=== PATIENT | female | born 1985 | race Caucasian/White ===

== ENCOUNTER 2017-12-28 16:52 | Emergency (ER) | payer OTHER ==
[2017-12-28 17:16] VITALS: BP 132/76; PULSE 110; TEMP 98.3; BMI 51.7
[2017-12-28 17:17] LABS: HCG,QUALITATIVE URINE Negative
[2017-12-28 17:22] LABS: PH,URINE 5.5 (4.5-8); URINE APPEARANCE Clear; URINE BILIRUBIN Negative (NEGATIVE); URINE COLOR Yellow; URINE GLUCOSE (UA) Trace (NEGATIVE); URINE KETONE Negative (NEGATIVE); URINE LEUK ESTERASE 1+ (NEGATIVE); URINE NITRITE Negative (NEGATIVE); URINE PROTEIN Negative (NEGATIVE); URINE UROBILINOGEN 0.2 (0.2-1.0)
[2017-12-28 18:05] LABS: EPI CELLS FEW /HPF
[2017-12-28 18:06] LABS: URINE BACTERIA FEW /hpf (NEGATIVE)
--- NOTE | 2017-12-28 19:10 | PDOC ---
History of Present Illness - General Chief Complaint: Psychiatric Stated Complaint: PSYCHIATRIC Time Seen by Provider: 12/28/17 17:34 - History of Present Illness Initial Comments: 12/28/17 19:10 Attempted to see patient. Patient was not compliant and she eloped before medical evaluation could be completed. Past History - Past Medical History Allergies/Adverse Reactions: Allergies Allergy/AdvReac Type Severity Reaction Status Date / Time lamotrigine [From Lamictal] Allergy Verified 12/28/17 16:54 [place] Allergy Verified 12/28/17 16:54 clyde Allergy Verified 12/28/17 16:54 topiramate [From Topamax] Allergy Verified 12/28/17 16:54 - Suicide/Smoking/Psychosocial Hx Smoking History: Never smoked Drug/Substance Use Hx: Yes (DAILY WINE) Review of Systems - Review of Systems Able to Perform ROS?: No (Patient eloped) *Physical Exam - Vital Signs Last Vital Signs Temp Pulse Resp BP Pulse Ox 98.3 F 110 H 18 132/76 98 12/28/17 16:53 12/28/17 16:53 12/28/17 16:53 12/28/17 16:53 12/28/17 16:53 - Physical Exam General Appearance: Yes: Disheveled ED Treatment Course - ADDITIONAL ORDERS Additional order review: Laboratory Results 12/28/17 17:03 Urine Color Yellow Urine Appearance Clear Urine pH 5.5 Ur Specific [place] 1.015 Urine Protein Negative Urine Glucose (UA) Trace Urine Ketones Negative Urine Blood Trace-lysed H Urine Nitrite Negative Urine Bilirubin Negative Urine Urobilinogen 0.2 Ur Leukocyte Esterase 1+ H Urine RBC 2-5 Urine WBC 5-10 Ur Epithelial Cells Few Urine Bacteria Few Urine HCG, Qual Negative Medical Decision Making - Medical Decision Making 12/29/17 22:07 Could not evaluate patient bc she eloped. *DC/Admit/Observation/Transfer Diagnosis at time of Disposition: Left before treatment completed - Discharge Dispostion Disposition: LEFT BEFORE DIANE ALONSO - Referrals - Patient Instructions - Post Discharge Activity
== END 2017-12-28 19:12 | disposition left against medical advice (07) ==
LOC: FER 16:52
DX: F99 Mental disorder, not otherwise specified (principal)
CPT/HCPCS: 81003; 81015; 84703; 99281-25

== ENCOUNTER 2018-01-27 13:26 | Emergency (ER) | payer MEDICARE, OTHER ==
--- NOTE | 2018-01-27 13:33 | PDOC ---
History of Present Illness - General History Source: Patient Exam Limitations: No Limitations - History of Present Illness Initial Comments: 01/27/18 14:16 The patient is a 32 year old female with no significant PMH who presents to the emergency department with 3 day history of increased odor to her urine and vaginal discharge with subjective fevers at home. Patient reports her urine is slimy and is concerned that she has a sexually transmitted disease. The patient denies chills, dysuria, frequency, urgency and hematuria. Allergies: NKA Past surgical history: None reported. Social history: No reported alcohol, drug or cigarette use. <Kira Mchugh - Last Filed: 01/27/18 14:20> - History of Present Illness Initial Comments: 01/27/18 13:52 Pt presents to the ED complaining of a several day history of "slimy" urine <Alisha Ahumada - Last Filed: 01/27/18 17:04> - General Chief Complaint: Urinary Problem Stated Complaint: WANTS TO BE EVALUATED FOR STD Time Seen by Provider: 01/27/18 13:33 Past History <Kira Mchugh - Last Filed: 01/27/18 14:20> - Suicide/Smoking/Psychosocial Hx Smoking History: Never smoked Drug/Substance Use Hx: Yes (DAILY WINE) <Alisha Ahumada - Last Filed: 01/27/18 17:04> - Past Medical History Allergies/Adverse Reactions: Allergies Allergy/AdvReac Type Severity Reaction Status Date / Time lamotrigine [From Lamictal] Allergy Severe Verified 01/27/18 13:29 [place] Allergy Severe Difficulty Verified 01/27/18 13:31 Breathing clyde Allergy Severe Difficulty Verified 01/27/18 13:31 Breathing topiramate [From Topamax] Allergy Severe Verified 01/27/18 13:30 Home Medications: Ambulatory Orders Doxycycline Hyclate 200 mg PO BID #20 tablet. 01/27/18 Vit 93/Iron Fum/Folic [ Formula Tablet] 1 each PO DAILY Review of Systems - Review of Systems Able to Perform ROS?: Yes Comments:: 01/27/18 14:17 ADULT ROS GENERAL/CONSTITUTIONAL: No fever or chills. No weakness. HEAD, EYES, EARS, NOSE AND THROAT: No change in vision. No ear pain or discharge. No sore throat. CARDIOVASCULAR: No chest pain or shortness of breath. RESPIRATORY: No cough, wheezing, or hemoptysis. GASTROINTESTINAL: No nausea, vomiting, diarrhea or constipation. GENITOURINARY: No dysuria or frequency. (+) Vaginal discharge. (+) Odorous urine. MUSCULOSKELETAL: No joint or muscle swelling or pain. No neck or back pain. SKIN: No rash NEUROLOGIC: No headache, vertigo, loss of consciousness, or change in strength/ sensation. ENDOCRINE: No increased thirst. No abnormal weight change. HEMATOLOGIC/LYMPHATIC: No anemia, easy bleeding, or history of blood clots. ALLERGIC/IMMUNOLOGIC: No hives or skin allergy <Kira Mchugh - Last Filed: 01/27/18 14:20> *Physical Exam - Vital Signs Last Vital Signs Temp Pulse Resp BP Pulse Ox 97.8 F 96 H 18 128/86 98 01/27/18 13:28 01/27/18 13:28 01/27/18 13:28 01/27/18 13:28 01/27/18 13:28 - Physical Exam Comments: 01/27/18 14:17 ADULT EXAM GENERAL: Awake, alert, and fully oriented, in no acute distress HEAD: No signs of trauma EYES: PERRLA, EOMI, sclera anicteric, conjunctiva clear ENT: Auricles normal inspection, hearing grossly normal, nares patent, oropharynx clear without exudates. Moist mucosa NECK: Normal ROM, supple, no lymphadenopathy, JVD, or masses LUNGS: Breath sounds equal, clear to auscultation bilaterally. No wheezes, and no crackles HEART: Regular rate and rhythm, normal S1 and S2, no murmurs, rubs or gallops ABDOMEN: (+) Voluntary guarding, refused to have abdominal exam. EXTREMITIES: Normal range of motion, no edema. No clubbing or cyanosis. No cords, erythema, or tenderness NEUROLOGICAL: Cranial nerves II through XII grossly intact. Normal speech, normal gait SKIN: Warm, Dry, normal turgor, no rashes or lesions noted. <Kira Mchugh - Last Filed: 01/27/18 14:20> - Physical Exam Female Pelvic Exam: positive: normal external exam, cervical os closed, discharge (scant amount of yellowish discharge. Patient refused bimanual exam.) <Alisha Ahumada - Last Filed: 01/27/18 17:04> ED Treatment Course - ADDITIONAL ORDERS Additional order review: Laboratory Results 01/27/18 13:49 Urine Color Yellow Urine Appearance Clear Urine pH 5.5 Ur Specific [place] >= 1.030 Urine Protein Negative Urine Glucose (UA) Negative Urine Ketones Negative Urine Blood Negative Urine Nitrite Negative Urine Bilirubin Negative Urine Urobilinogen 0.2 Ur Leukocyte Esterase Trace H Urine RBC 0-2 Urine WBC 2-5 Ur Epithelial Cells 1+ Urine Bacteria None seen Urine HCG, Qual Negative <Kira Mchugh - Last Filed: 01/27/18 14:20> Medical Decision Making - Medical Decision Making 01/27/18 17:02 Pt presents to the ED complaining of vaginal discharge and "slimy urine". Wants to be tested for STD. Exam was not suggestive of gonorrhea or chlamydia, but given patient concern, will start treatment for cervicitis. Will discharge home with instructions to follow up with DEFENSE TRAVEL ADMINISTRATOR. Patient reported being 6 months , but has negative u preg today. <Alisha Ahumada - Last Filed: 01/27/18 17:04> *DC/Admit/Observation/Transfer - Attestations Scribe Attestion: 01/27/18 14:17 Documentation prepared by Kira Mchugh, acting as lpn medical assistant for Alisha Ahumada MD. <Kira Mchugh - Last Filed: 01/27/18 14:20> - Discharge Dispostion Decision to Admit order: No <Alisha Ahumada - Last Filed: 01/27/18 17:04> Diagnosis at time of Disposition: Cervicitis - Discharge Dispostion Disposition: HOME Condition at time of disposition: Good - Prescriptions Prescriptions: Doxycycline Hyclate 200 mg PO BID #20 tablet.dr - Patient Instructions Printed Discharge Instructions: DI for Acute Cervicitis Additional Instructions: return to the Ed for fever, nausea and vomiting, severe abdominal pain, other new or changing symptoms. Make sure that you follow up with your DEFENSE TRAVEL ADMINISTRATOR within two days.
[2018-01-27 13:39] VITALS: BP 128/86; PULSE 96; TEMP 97.8; BMI 51.7
[2018-01-27 13:59] LABS: HCG,QUALITATIVE URINE Negative
[2018-01-27 14:02] LABS: PH,URINE 5.5 (4.5-8); URINE APPEARANCE Clear; URINE BILIRUBIN Negative (NEGATIVE); URINE COLOR Yellow; URINE GLUCOSE (UA) Negative (NEGATIVE); URINE KETONE Negative (NEGATIVE); URINE LEUK ESTERASE TRACE (NEGATIVE); URINE NITRITE Negative (NEGATIVE); URINE PROTEIN Negative (NEGATIVE); URINE UROBILINOGEN 0.2 (0.2-1.0)
[2018-01-27] MEDS ORDERED: AZITHROMYCIN 1 GM PACKET PO ONE (14:12)
[2018-01-27 14:13] LABS: EPI CELLS 1+ /HPF; URINE BACTERIA NONE SEEN /hpf (NEGATIVE); URINE RBC 0-2 /hpf (0-3)
[2018-01-27] MEDS ORDERED: AZITHROMYCIN 250 MG TABLET ONE (14:17)
== END 2018-01-27 14:34 | disposition home or self-care (01) ==
LOC: FER 13:26
DX: N72 Inflammatory disease of cervix uteri (principal)
CPT/HCPCS: 36415; 81003; 81015; 84703; 87491; 87591; 96372; 99282-25

== ENCOUNTER 2018-01-27 17:00 | Emergency (ER) | payer MEDICARE ==
--- NOTE | 2018-01-27 17:08 | PDOC ---
History of Present Illness - General Stated Complaint: DEHYDRATION Time Seen by Provider: 01/27/18 17:07 History Source: Patient Exam Limitations: Other (Pt gives conflicting stories, poor historian or refuses to answer some questions.) - History of Present Illness Initial Comments: Pt is a 32 yo F, with PMH of NIDDM, who was brought by EMS today after pt experienced "dizziness" 1-2 hours before presentation and states "I feel like drugs are in my brain," and "I'm dehydrated and have a disease". Pt was unable to describe light-headedness versus vertigo. She denies fevers/chills, headache , nausea/vomiting, chest pain, syncope, palpitations, abdominal pain, urinary symptoms, diarrhea, or joint pain. The pt has been seen at [facility] ER in December (eloped before full evaluation), and was seen earlier today at [facility] ER with "slimy urine" and concern for STD infection. Pt insists that she is , stating her LMP was "about a year ago," and that she has had gonorrhea and chlamydia in the past. However she also admits that she has never had penetrative intercourse. She denies alcohol, cigarette, and drug use. 01/27/18 19:27 Past History - Travel Traveled outside of the country in the last 30 days: No Close contact w/someone who was outside of country & ill: No - Past Medical History Allergies/Adverse Reactions: Allergies Allergy/AdvReac Type Severity Reaction Status Date / Time lamotrigine [From Lamictal] Allergy Severe Verified 01/27/18 13:29 [place] Allergy Severe Difficulty Verified 01/27/18 13:31 Breathing [place] Allergy Severe Difficulty Verified 01/27/18 13:31 Breathing topiramate [From Topamax] Allergy Severe Verified 01/27/18 13:30 Home Medications: Ambulatory Orders Doxycycline Hyclate 200 mg PO BID #20 tablet. 01/27/18 Vit 93/Iron Fum/Folic [ Formula Tablet] 1 each PO DAILY COPD: No Diabetes: Yes HTN: No Hypercholesterolemia: No Psychiatric Problems: Yes (admits depression in past) - Surgical History Cholecystectomy: Yes - Suicide/Smoking/Psychosocial Hx Smoking History: Never smoked Have you smoked in the past 12 months: No Hx Alcohol Use: No Drug/Substance Use Hx: Yes (DAILY WINE) Substance Use Type: None Review of Systems - Review of Systems Able to Perform ROS?: Yes Is the patient limited Slovak proficient: Yes Constitutional: Yes: Weight Stable. No: Chills, Fever, Loss of Appetite, Weakness HEENTM: No: Recent change in vision, Nose Congestion, Difficulty Swallowing Respiratory: No: Cough, Orthopnea, Shortness of Breath, Wheezing Cardiac (ROS): Yes: Lightheadedness ("dizziness and dehydrated"). No: Chest Pain, Edema, Irregular Heart Rate, Palpitations, Syncope, Chest Tightness ABD/GI: No: Abdominal Distended, Constipated, Diarrhea, Nausea, Poor Appetite, Poor Fluid Intake, Vomiting : No: Burning (pt denies urinary symptoms on this visit), Dysuria, Frequency, Hematuria, Pain Musculoskeletal: No: Back Pain, Joint Pain Integumentary: No: Bruising Neurological: Yes: Dizziness. No: Headache, Numbness, Seizure, Weakness, Unsteady Gait, Ataxia Psychiatric: Yes: Depression (past history, took "medications for about 1 day") , Other (Denies SI/HI). No: Change in Appetite Endocrine: No: Increased Urine, Change in Weight Hematologic/Lymphatic: No: Blood Clots, Easy Bleeding All Other Systems: Reviewed and Negative *Physical Exam - Physical Exam General Appearance: Yes: Nourished, Appropriately Dressed, Obese. No: Apparent Distress, Alcohol on Breath HEENT: positive: EOMI, YESIKA (pupils dilated, PERRLA), Normal ENT Inspection, Normal Voice, Symmetrical, Pharynx Normal, Hearing Grossly Normal. negative: Scleral Icterus (R), Scleral Icterus (L), Tonsillar Exudate, Tonsillar Erythema , Nasal Congestion Neck: positive: Trachea midline, Normal Thyroid, Supple. negative: Tender, Rigid, Lymphadenopathy (R), Lymphadenopathy (L) Respiratory/Chest: positive: Lungs Clear, Normal Breath Sounds. negative: Chest Tender, Respiratory Distress, Accessory Muscle Use, Crackles, Wheezing Cardiovascular: positive: Regular Rhythm, Regular Rate, S1, S2. negative: Edema , JVD, Murmur Vascular Pulses: Carotid (R): 4+, Carotid (L): 4+ Female Pelvic Exam: negative: other (no urinary or vaginal complaints at this time, deferred) Gastrointestinal/Abdominal: positive: Protuberent, Other (pt refused as "she's ") Rectal Exam: positive: deferred Lymphatic: negative: Adenopathy, Tenderness Musculoskeletal: positive: Normal Inspection. negative: CVA Tenderness Extremity: positive: Normal Capillary Refill, Normal Inspection, Normal Range of Motion, Pelvis Stable. negative: Tender Integumentary: positive: Normal Color, Dry, Warm. 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 negative: Normal Mood/Affect (odd responses to questions. kept repeating "what are we doing right now?". ), EOM Palsy, Facial Droop Medical Decision Making - Medical Decision Making Pt was seen at bedside, also will be seen by Dr. Juarez. Pt has been seen at [facility] ER in December (eloped before full evaluation), and was seen earlier today at [facility] ER with "slimy urine" and concern for STD test. Pt insists that she is , stating her LMP was "about a year ago," and that she has had gonorrhea and chlamydia in the past. However she also admits that she has never had penetrative intercourse. Pt was brought by EMS today after pt experienced "dizziness" 1-2 hours before presentation and states "I feel like drugs are in my brain," and "I'm dehydrated and have a disease". Pt was unable to describe light-headedness versus vertigo. Pt denies any SI/HI at this time. Pt was hesitant to answer any questions about mental health history. On physical exam, pt was A/Ox4, pupils dilated. When attempting to do abdominal exam, pt stated "it's dangerous to press in my abdomen on the amniotic sac. I think that's malpractice". No further abdominal exam was done. The rest of exam was benign and pt did not appear clinically dry (moist mucous membranes, no decreased skin turgor). Vital signs stable throughout visit. Given conflicts in story, multiple visits over the past few weeks (2 today), and clinical suspicion of mental health issues vs drug intoxication, work-up was ordered. CBC, CMP, alcohol/acetaminophen/salicylates, urine drug screen, UA , urine culture, quantitative serum beta-hcg. Pt tolerated PO water, will provide 1 L NS IVF. 01/27/18 17:34 ECG NSR, normal intervals, no ST changes. Pt has refused blood work from multiple staff attempting (nursing, resident), pt was difficult stick and "she was afraid". Offered butterfly with arterial stick and US-guided IV, pt refused. Pt informed that she will be leaving AMA without full work-up. Risks and benefits were explained. Awaiting UA, urine toxicology, and urine cultures. Pt has no current complaints of dizziness or pain. Pt able to tolerate PO intake in the ER with no difficulty. 01/27/18 18:50 Awaiting urine, pt was signed out to Dr. Gandhi who will complete discharge once urine results return. 01/27/18 19:19 *DC/Admit/Observation/Transfer Diagnosis at time of Disposition: Dizziness - Discharge Dispostion Disposition: AGAINST MEDICAL ADVICE Condition at time of disposition: Good Decision to Admit order: No - Referrals Referrals: [facility] at [place] [Provider Group] Tiburcio Villeda MD [Staff Physician] - - Patient Instructions Printed Discharge Instructions: DI for Dizziness-Nonvertigo Additional Instructions: You were seen in the ER today for dizziness earlier in the day. Your urine test today was normal. Please follow-up with your primary care doctor and HEARING AID FITTER to discuss your visit and make sure your symptoms have improved. Please return to the ER if you have worsening dizziness, loss of consciousness, headache that does not improve, or any other concerns. - Post Discharge Activity
--- NOTE | 2018-01-27 17:20 | PDOC ---
Attending Attestation - HPI HPI: 01/27/18 18:48 The patient is a 32 year old female with a significant PMH of diabetes insipidus and bipolar disorder who presents to the emergency department with dehydration since earlier today. The patient reports that she has been feeling dehydrated since earlier today. She states that she drank some gatorade earlier this morning with little relief. The patient also reports that she is currently with a appointment with Dr Lafleur on Tuesday however denies any penile penetration in the past. The patient does report having GC about 4 months ago. She denies any vaginal pain or discharge . she denies any other symptoms or complaints. Documentation prepared by Karen Driscoll, acting as medical chief technician for Ekaterina Juarez MD. <Karen Driscoll - Last Filed: 01/27/18 18:48> - Resident Resident Name: TjMadalyn trent - ED Attending Attestation I have performed the following: I have examined & evaluated the patient, The case was reviewed & discussed with the resident, I agree w/resident's findings & plan, Exceptions are as noted - Physicial Exam PE: 01/28/18 02:53 Gen: aaox3, nad, hirtsutism of face heart: +s1s2 reg lungs: cta b/l abd: soft, nt/nd, +bs, ext: no c/c/e neuro: no focal neuro deficits - Medical Decision Making 01/27/18 17:19 I, Dr. Ekaterina Juarez, DO, attest that this document has been prepared under my direction and personally reviewed by me in its entirety. I further attest, that it accurately reflects all work, treatment, procedures and medical decision -making performed by me. 01/27/18 18:24 32yo female with hx of borderline DM and hx of DI presents for eval of feeling dehydrated -no n/v/d -states only drank a gatorade today -states she is a few months , states she has GC/Chlamydia -seen at [facility] earlier today and underwent UA Gc/chl testing - ua negative, ucg negative -has appt with Dr. Lafleur on Tuesday for a visit, however denies having penile penetration or intercourse -pt denies cp/sob. No abd pain. No si/hi. No leg pain or swelling -will send labs, beta hcg quant -will check sodium given hx of DI. will monitor and reassess 01/27/18 19:36 pt refusing lab draw pt states she wants to sign out AMA 01/27/18 19:37 pt signed the AMA paperwork Note: The patient insists on leaving the emergency dept and is signing out against medical advice. The patient understands the risks and complications that may result from the refusal of medical care and admission which includes and permanent disability. The patient has the mental capacity of understanding the risks of refusing care and is capable of making an informed decision. The patient was instructed to return to the emergency department should she change her mind regarding medical care or should her condition worsen. The patient signed the Against Medical Advice form. <Ekaterina Juarez - Last Filed: 01/28/18 02:56>
[2018-01-27 17:39] VITALS: BP 128/87; PULSE 78; TEMP 98.1; BMI 51.7
[2018-01-27 18:54] LABS: URINE APPEARANCE CLEAR; URINE BILIRUBIN NEGATIVE (<2.0 mg/dL); URINE COLOR LTYELLOW; URINE GLUCOSE (UA) NEGATIVE (NEGATIVE); URINE KETONE NEGATIVE (NEGATIVE); URINE LEUK ESTERASE 3+ (NEGATIVE); URINE NITRITE NEGATIVE (NEGATIVE); URINE PROTEIN NEGATIVE (NEGATIVE); URINE UROBILINOGEN NEGATIVE mg/dL (0.2-1.0)
[2018-01-27 19:07] LABS: METHADONE, UR NEGATIVE ng/ml (CUTOFF=300); PHENCYCLIDINE,URINE NEGATIVE ng/ml (CUTOFF=25); URINE BARBITURATES NEGATIVE ng/ml (CUTOFF=200); URINE BENZODIAZEPINES NEGATIVE ng/ml (CUTOFF=200)
[2018-01-27 19:08] LABS: COCAINE, UR NEGATIVE ng/ml (CUTOFF=300); OPIATES, URI NEGATIVE ng/ml (CUTOFF=300); URINE AMPHETAMINES NEGATIVE ng/ml (CUTOFF=500)
[2018-01-27 19:12] LABS: EPI CELLS RARE /HPF (FEW)
--- NOTE | 2018-01-27 19:21 | PDOC ---
*Physical Exam - Vital Signs Last Vital Signs Temp Pulse Resp BP Pulse Ox 98.1 F 78 20 128/87 98 01/27/18 17:34 01/27/18 17:34 01/27/18 17:34 01/27/18 17:34 01/27/18 17:34 ED Treatment Course - ADDITIONAL ORDERS Additional order review: Laboratory Results 01/27/18 01/27/18 18:30 18:30 Urine Color Ltyellow Urine Appearance Clear Urine pH 5.0 Ur Specific [place] 1.017 Urine Protein Negative Urine Glucose (UA) Negative Urine Ketones Negative Urine Blood Negative Urine Nitrite Negative Urine Bilirubin Negative Urine Urobilinogen Negative Ur Leukocyte Esterase 3+ H Urine WBC (Auto) 18 Urine RBC (Auto) 1 Ur Epithelial Cells Rare Opiates Screen Negative Methadone Screen Negative Barbiturate Screen Negative Phencyclidine Screen Negative Ur Amphetamines Screen Negative MDMA (Ecstasy) Screen Negative Benzodiazepines Screen Negative Cocaine Screen Negative U Marijuana (THC) Screen Negative Medical Decision Making - Medical Decision Making I have assumed care of the patient from Dr. Spencer, who has discussed the clinical presentation, work-up, and ED course thus far. I have reviewed the patients medical record and ED course and agree with all aspects of care thus far. Patient is pending a UA. Patient is continuing to refuse laboratory work. 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 The patient is also not under any duress to leave the hospital. I have voiced my concerns for the patient's health given that a full evaluation and treatment had not occurred. I have discussed the need for continued evaluation to determine if their symptoms are caused by a condition that present risk of or morbidity. Risks including but not limited to , permanent disability, prolonged hospitalization, prolonged illness, were discussed. Because I have been unable to convince the patient to stay, I answered all of their questions about their condition and asked them to return to the ED as soon as possible to complete their evaluation, especially if their symptoms worsen or do not improve. I emphasized that leaving against medical advice does not preclude returning here for further evaluation. I asked the patient to return if they change their mind about the further evaluation and treatment. I strongly encouraged the patient to return to this Emergency Department or any Emergency Department at any time, particularly with worsening symptoms. Dispo: [place] 01/27/18 19:15 *DC/Admit/Observation/Transfer Diagnosis at time of Disposition: Dizziness - Discharge Dispostion Disposition: AGAINST MEDICAL ADVICE Condition at time of disposition: Good - Referrals Referrals: [facility] [place] [facility] at [place] [Provider Group] Tiburcio Villeda MD [Staff Physician] - - Patient Instructions Printed Discharge Instructions: DI for Dizziness-Nonvertigo Additional Instructions: You were seen in the ER today for dizziness earlier in the day. Your urine test today was normal. Please follow-up with your primary care doctor and TRACK WELDER to discuss your visit and make sure your symptoms have improved. Please return to the ER if you have worsening dizziness, loss of consciousness, headache that does not improve, or any other concerns. - Post Discharge Activity
--- NOTE | 2018-01-28 14:59 | EKG ---
Test Reason : Blood Pressure : / mmHG Vent. Rate : 088 BPM Atrial Rate : 088 BPM P-R Int : 162 ms QRS Dur : 070 ms QT Int : 336 ms P-R-T Axes : 020 038 005 degrees QTc Int : 406 ms NORMAL SINUS RHYTHM NORMAL ECG NO PREVIOUS ECGS AVAILABLE Confirmed by MD Whitney, Ajay ([id number]) on 01/28/2018 2:59:29 PM Referred By: Confirmed By:Ajay Olson MD
== END 2018-01-27 19:36 | disposition left against medical advice (07) ==
LOC: JER 17:00
DX: R42 Dizziness and giddiness (principal); E23.2 Diabetes insipidus; F31.9 Bipolar disorder, unspecified; R82.90 Unspecified abnormal findings in urine
CPT/HCPCS: 80307; 81003; 81015; 87086; 93005; 93010; 99282-25